=== PATIENT | female | born 1975 | race Caucasian/White ===

== ENCOUNTER 2016-12-10 08:30 | Outpatient (RCR) | payer MEDICAID ==
[~2016-12-10 08:30] MED LIST: DM/P295L13; GUAI-150 PO; OMEP20CA6 PO
== END 2016-12-12 | disposition home or self-care (01) ==
PROVIDERS: ATTEND Family Medicine
DX: M54.5 Low back pain (principal)

== ENCOUNTER 2017-01-27 09:15 | Outpatient (RCR) | payer MEDICAID | END 2017-03-17 | disposition home or self-care (01) | PROVIDERS: ATTEND Family Medicine | DX: M54.5 Low back pain (principal) ==

== ENCOUNTER 2017-09-23 11:47 | Outpatient (CLI) | payer MEDICAID ==
[2017-09-23] MEDS ORDERED: DEXAMETHASONE 10 MG/ML (DECADRON) 1 ML VIAL ONE (12:04)
[2017-09-23 12:16] VITALS: BP 112/68
[2017-09-23 12:57] VITALS: BP 120/77
--- NOTE | 2017-09-23 20:00 | OPERATIVE REPORT ---
DATE OF SERVICE: 09/23/2017 DIAGNOSIS: Thoracic radiculopathy. OPERATIVE PROCEDURE: Interlaminar epidural steroid injection at T7-T8. ANESTHESIA: Propofol. COMPLICATIONS: None. CLINICAL SURGICAL COURSE: After being placed in the prone position upon a procedure table, we then administered Propofol for anesthesia. The area overlying the T7-T8 area was identified under fluoroscopy. The skin overlying the area was prepped with Betadine. The skin and the deep structures were anesthetized with approximately 5 mL of 1% Lidocaine. A 25 gauge spinal needle was then inserted and directed down to the lamina under direct fluoroscopy guidance. it was then worked into the ligamentum flavum. Using a loss of resistance syringe, we entered the epidural space. Approximately 1.0 mL of contrast dye was injected. Proximal and distal spread was noted. This indicated that we were in the epidural space. No vascular uptake was noted. Finally, 8.0 mg of Dexamethasone diluted in 3 mm of preservation free saline was injected and washed out the contrast under fluoroscopy. No blood, CSF or paresthesia was noted during the procedure. The patient will be released home without any complications. Job ID: [id number] DocumentID: [id number] Dictated Date: 09/23/2017 12:55:55 Hand Finisher Date: 09/23/2017 19:59:29 Dictated By: MARY BETH REYES DO
== END 2017-09-23 13:00 ==
LOC: CARD 11:47
PROVIDERS: ATTEND Pain Medicine Interventional Pain Medicine
DX: M54.14 Radiculopathy, thoracic region (principal)
CPT/HCPCS: 62321

== ENCOUNTER 2019-05-02 19:46 | Emergency (ER) | payer MEDICAID ==
[~2019-05-02] VITALS: Ht 165 cm; Wt 61.0 kg
[2019-05-02] MEDS ORDERED: PANTOPRAZOLE 40 MG (PROTONIX) VIAL IV STA (19:54)
[2019-05-02] MEDS ORDERED: fentaNYL INJECTION 100 MCG/2 ML AMP IVP STA (19:54)
[2019-05-02] MEDS ORDERED: ASPIRIN 81 MG CHEW (CHILDREN'S ASA) PO ONE (20:00)
--- NOTE | 2019-05-02 20:03 | ED Chest Pain ---
General Chief Complaint: Chest Pain Stated Complaint: CHEST PAINS Source: patient History of Present Illness Date Seen by Provider: May 02, 2019 Time Seen by Provider: 19:46 Initial Comments 43-year-old female presenting with complaints of pain in her back between her shoulder blades and this is a sharp pain that came on suddenly [facility] She also has pain in her chest. She has been drinking some wine coolers tonight. She denies having pain like this in the past. She denies any nausea or vomiting. She has no shortness of breath but feels like she has to take a deep breath. She has no history of heart disease or respiratory problems. She is currently taking an antibiotic for a dental infection. She has previously had her gallbladder removed. She denies any abdominal pain. She just finished her menstrual period 2 days ago. The pain started just prior to coming to the emergency department. She has not tried taking anything for the pain. She appears very anxious Allergies and Home Medications Allergies Coded Allergies: codeine (Unverified Allergy, Mild, 01/15/09) Patient Home Medication List Home Medication List Reviewed: Yes Review of Systems Review of Systems Constitutional: No chills, No fever EENTM: No Symptoms Reported Respiratory: No Symptoms Reported Cardiovascular: See HPI, Chest Pain Gastrointestinal: No Symptoms Reported Genitourinary: No Symptoms Reported Musculoskeletal: back pain (sharp pain between her shoulder blades) Skin: no symptoms reported Psychiatric/Neurological: Anxiety Past Kvtbhio-Slqnuw-Dzvecu Hx Past Med/Social Hx: Reviewed Nursing Past Med/Soc Hx Patient Social History Alcohol Use: Denies Use Recreational Drug Use: No Smoking Status: Current Everyday Smoker Type Used: Cigarettes 2nd Hand Smoke Exposure: No Recent Foreign Travel: No Contact w/Someone Who Travel: No Physical Abuse: No Sexual Abuse: No Seasonal Allergies Seasonal Allergies: No Past Medical History Surgeries: Yes Respiratory: No Cardiac: No Neurological: No Reproductive Disorders: Yes (LEEP in past) Sexually Transmitted Disease: No Gastrointestinal: No Musculoskeletal: No Endocrine: No Cancer: No Psychosocial: No Integumentary: No Blood Disorders: No Physical Exam Vital Signs Vital Signs - First Documented 05/02/19 19:50 Temp 36.6 Pulse 90 Resp 18 B/P (MAP) 117/72 (87) Pulse Ox 100 O2 Delivery Room Air Capillary Refill : Height, Weight, BMI Height: 5'5.00" Weight: 146lbs. oz. 66.050906sz; BMI Method:Stated General Appearance: Anxious, Moderate Distress HEENT: PERRL/EOMI, Normal ENT Inspection, Pharynx Normal Neck: Full Range of Motion, Normal Inspection, Non Tender, Supple; No Carotid Bruit Respiratory: Chest Non Tender, Lungs Clear, Normal Breath Sounds, No Accessory Muscle Use, No Respiratory Distress Cardiovascular: Regular Rate, Rhythm, Normal Peripheral Pulses Gastrointestinal: Normal Bowel Sounds, No Pulsatile Mass, Soft Rectal: Deferred Extremity: Normal Capillary Refill, Normal Inspection, No Pedal Edema Neurologic/Psychiatric: Alert, Oriented x3, No Motor/Sensory Deficits, 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 Norm as Tested, Other (anxious) Skin: Normal Color, Warm/Dry Progress/Results/Core Measures Results/Orders Lab Results Laboratory Tests Test 05/02/19 19:53 Range/Units White Blood Count 7.9 4.3-11.0 10^3/uL Red Blood Count 4.25 L 4.35-5.85 10^6/uL Hemoglobin 12.5 11.5-16.0 G/DL Hematocrit 39 35-52 % Mean Corpuscular Volume 91 80-99 FL Mean Corpuscular Hemoglobin 29 25-34 PG Mean Corpuscular Hemoglobin Concent 32 32-36 G/DL Red Cell Distribution Width 13.5 10.0-14.5 % Platelet Count 247 130-400 10^3/uL Mean Platelet Volume 11.2 H 7.4-10.4 FL Neutrophils (%) (Auto) 57 42-75 % Lymphocytes (%) (Auto) 34 12-44 % Monocytes (%) (Auto) 7 0-12 % Eosinophils (%) (Auto) 1 0-10 % Basophils (%) (Auto) 1 0-10 % Neutrophils # (Auto) 4.5 1.8-7.8 X 10^3 Lymphocytes # (Auto) 2.7 1.0-4.0 X 10^3 Monocytes # (Auto) 0.6 0.0-1.0 X 10^3 Eosinophils # (Auto) 0.1 0.0-0.3 10^3/uL Basophils # (Auto) 0.0 0.0-0.1 10^3/uL Prothrombin Time 13.4 12.2-14.7 SEC INR Comment 1.0 0.8-1.4 Activated Partial Thromboplast Time 28 24-35 SEC Sodium Level 139 135-145 MMOL/L Potassium Level 3.7 3.6-5.0 MMOL/L Chloride Level 102 98-107 MMOL/L Carbon Dioxide Level 24 21-32 MMOL/L Anion Gap 13 5-14 MMOL/L Blood Urea Nitrogen 8 7-18 MG/DL Creatinine 0.75 0.60-1.30 MG/DL Estimat Glomerular Filtration Rate > 60 BUN/Creatinine Ratio 11 Glucose Level 84 70-105 MG/DL Calcium Level 9.2 8.5-10.1 MG/DL Corrected Calcium 8.9 8.5-10.1 MG/DL Magnesium Level 2.0 1.6-2.4 MG/DL Total Bilirubin 0.2 0.1-1.0 MG/DL Aspartate Amino Transf (AST/SGOT) 16 5-34 U/L Alanine Aminotransferase (ALT/SGPT) 12 0-55 U/L Alkaline Phosphatase 61 40-136 U/L Troponin I < 0.30 <0.30 NG/ML Pro-B-Type Natriuretic Peptide 28.0 <75.0 PG/ML Total Protein 7.1 6.4-8.2 GM/DL Albumin 4.4 3.2-4.5 GM/DL Lipase 55 8-78 U/L Serum Alcohol 50 H <10 MG/DL My Orders Orders - MELLISA SARAH MD Cbc With Automated Diff (05/02/19 19:54) Magnesium (05/02/19 19:54) Ekg Tracing (05/02/19 19:54) Comprehensive Metabolic Panel (05/02/19 19:54) Protime With Inr (05/02/19 19:54) Partial Thromboplastin Time (05/02/19 19:54) O2 (05/02/19 19:54) Monitor-Rhythm Ecg Trace Only (05/02/19 19:54) Aspirin Chewable Tablet (Baby Aspirin Ch (05/02/19 20:00) Ed Iv/Invasive Line Start (05/02/19 19:54) Lipase (05/02/19 19:54) Troponin I Fs (05/02/19 19:54) Probnp Fs (05/02/19 19:54) Alcohol (05/02/19 19:54) Chest Pa/Lat (2 View) (05/02/19 19:54) Pantoprazole Injection (Protonix Injecti (05/02/19 19:54) Fentanyl Injection (Sublimaze Injection (05/02/19 19:54) Medications Given in ED Current Medications Medications Dose Ordered Sig/Colleen Route Start Time Stop Time Status Last Admin Dose Admin Aspirin 324 mg ONCE ONCE PO 05/02/19 20:00 05/02/19 20:01 DC 05/02/19 20:09 324 MG Vital Signs/I&O 05/02/19 05/02/19 19:50 21:23 Temp 36.6 Pulse 90 88 Resp 18 18 B/P (MAP) 117/72 (87) 109/59 Pulse Ox 100 100 O2 Delivery Room Air Room Air Progress Progress Note #1: Progress Note Obtain basic labs as well as chest x-ray and electrocardiogram. As there is no acute ischemic changes on the electrocardiogram will try Protonix as she has been drinking alcohol and a dose of fentanyl. Progress Note #2: Progress Note Labs were all negative for CBC, chemistry, pancreatitis and cardiac. The chest x-ray was not showing any acute process. Her electrocardiogram was negative for any ischemic changes. She did have improvement in her symptoms with the Protonix and single dose of fentanyl. She is been resting comfortably in the room. When discussing results with the patient she did relate that she was told she had an ulcer when she had her gallbladder removed in 2015. She does have Protonix to take but does not take it on a daily basis. Encouraged to take daily as this may have been esophageal spasm to cause her symptoms. Stressed that she should follow up with clinic and they may need to do another EGD or scope to evaluate her esophagus and stomach. Initial ECG Impression Date: May 02, 2019 Initial ECG Impression Time: 19:46 Initial ECG Rate: 90 Initial ECG Rhythm: Normal Sinus Initial ECG Comparisson: No Previous ECG Available Comment Normal sinus rhythm with a heart rate 90 bpm. ID interval of [address] elevation. QT interval of 377 ms and a QTc interval 462 ms. There is no prior tracing available for comparison. Diagnostic Imaging Diagonstic Imaging: Xray Plain Films/CT/US/NM/MRI: chest Comments NAME: [facility] REC#: [id number] PT STATUS: REG ER : 1975 PHYSICIAN: MELLISA SARAH MD ADMIT DATE: 05/02/19/ER FS Draft Date of Exam:05/02/19 CHEST PA/LAT (2 VIEW) INDICATION: Chest pain. PA and lateral chest obtained at 0759 p.m. Heart and mediastinal silhouette are normal in appearance. The lungs are clear. There is no pneumothorax or pleural fluid. IMPRESSION: Negative chest. Dictated on workstation # [id number] Dict: 05/02/192006 Trans: 05/02/192009 LAMIN [id number] Interpreted by: RILEY BROWN MD Electronically signed by: Departure Impression Primary Impression: Esophageal spasm Additional Impressions: Acute upper back pain Non-cardiac chest pain Disposition: HOME, SELF-CARE Condition: Stable Departure-Patient Inst. Decision time for Depature: 21:16 Referrals: JASON PICKERING DO (PCP) Primary Care Physician Patient Instructions: Chest Pain That Is Not Caused by the Heart (DC), Upper Back Pain (DC), Acid Reflux (Gastroesophageal Reflux Disease), Adult (DC) Add. Discharge Instructions: Take your pantoprazole (Protonix) on a daily basis and check back with Dr. Pickering as you may need to have a repeat EGD or scope to look at the lining of your esophagus and stomach for ulcers and scarring. Follow a bland diet to help prevent further episodes of pain Check with clinic for continued problems/concerns Return or seek medical care for worsening pain/symptoms All discharge instructions reviewed with patient and/or family. Voiced understanding. MELLISA SARAH MD May 02, 2019 20:03
--- NOTE | 2019-05-02 20:10 | Diagnostic Imaging Report ---
INDICATION: Chest pain. PA and lateral chest obtained at 0759 p.m. Heart and mediastinal silhouette are normal in appearance. The lungs are clear. There is no pneumothorax or pleural fluid. IMPRESSION: Negative chest. Dictated by: Dictated on workstation # [id number]
[2019-05-02 20:16] LABS: PROTHROMBIN TIME PATIENT 13.4 SEC (12.2-14.7)
[2019-05-02 20:17] LABS: BASOPHILS % (AUTO) 1 % (0-10); EOSINOPHILS # (AUTO) 0.1 10^3/uL (0.0-0.3); EOSINOPHILS % (AUTO) 1 % (0-10); HEMATOCRIT 39 % (35-52); HEMOGLOBIN 12.5 G/DL (11.5-16.0); LYMPHOCYTES # (AUTO) 2.7 X 10^3 (1.0-4.0); LYMPHOCYTES % (AUTO) 34 % (12-44); MEAN CORPUSCULAR HEMOGLOBIN 29 PG (25-34); MEAN CORPUSCULAR HGB CONC 32 G/DL (32-36); MEAN CORPUSCULAR VOLUME 91 FL (80-99); MEAN PLATELET VOLUME 11.2 FL (7.4-10.4); MONOCYTES # (AUTO) 0.6 X 10^3 (0.0-1.0); MONOCYTES % (AUTO) 7 % (0-12); NEUTROPHILS # (AUTO) 4.5 X 10^3 (1.8-7.8); NEUTROPHILS % (AUTO) 57 % (42-75); PLATELET COUNT 247 10^3/uL (130-400); RED CELL DISTRIBUTION WIDTH 13.5 % (10.0-14.5); WHITE BLOOD COUNT 7.9 10^3/uL (4.3-11.0)
[2019-05-02 20:27] LABS: ALANINE AMINOTRANSFERASE 12 U/L (0-55); ALBUMIN 4.4 GM/DL (3.2-4.5); ALKALINE PHOSPHATASE 61 U/L (40-136); BILIRUBIN,TOTAL 0.2 MG/DL (0.1-1.0); BUN/CREATININE RATIO 11; CALCIUM 9.2 MG/DL (8.5-10.1); CARBON DIOXIDE 24 MMOL/L (21-32); CHLORIDE 102 MMOL/L (98-107); CREATININE SERUM 0.75 MG/DL (0.60-1.30); GFR ESTIMATED > 60; GLUCOSE 84 MG/DL (70-105); LIPASE 55 U/L (8-78); POTASSIUM 3.7 MMOL/L (3.6-5.0); SODIUM 139 MMOL/L (135-145); TOTAL PROTEIN 7.1 GM/DL (6.4-8.2)
[2019-05-02 21:23] VITALS: BP 109/59
== END 2019-05-02 21:23 | disposition home or self-care (01) ==
LOC: EDUNIT# 19:46 → ER FS 19:47
DX: K22.4 Dyskinesia of esophagus (principal); M54.6 Pain in thoracic spine; R07.89 Other chest pain; F17.210 Nicotine dependence, cigarettes, uncomplicated; Z88.5 Allergy status to narcotic agent
CPT/HCPCS: 36415; 71046; 80053; 80320; 83690; 83735; 83880; 84484; 85025; 85610; 85730; 93005; 93041

== ENCOUNTER 2020-07-04 05:31 | Outpatient (CLI) | payer MEDICAID ==
[~2020-07-04] VITALS: Ht 165.1 cm; Wt 63.6 kg
[2020-07-04] MEDS ORDERED: PANT20TA18 PO (12:27)
== END 2020-07-04 12:30 | disposition home or self-care (01) ==
LOC: PREOP 05:31
PROVIDERS: ATTEND Obstetrics & Gynecology
DX: Z01.818 Encounter for other preprocedural examination (principal)

== ENCOUNTER 2021-10-01 21:57 | Emergency (ER) | payer MEDICAID ==
[~2021-10-01] VITALS: Ht 165 cm; Wt 58.0 kg
[~2021-10-01 21:57] MED LIST changes: +PANT20TA18 PO
--- NOTE | 2021-10-01 22:01 | ED Chest Pain ---
General Stated Complaint: CP History of Present Illness Date Seen by Provider: Oct 01, 2021 Time Seen by Provider: 10:05 Initial Comments 45-year-old female brought in with chest pain. The chest pain started approximately an hour or so prior to arrival. She reports she was out swimming when it started. That was kind epigastric substernal radiated to her back. Patient reports that it doubled over in pain. She does have a history of reflux where she gets "bubbles that can come about of her throat" takes Prilosec occasionally. She has had a prior negative stress test about 6 years ago. Patient does continue to smoke. She denies any diaphoresis. She denies any nausea, vomiting. She had some shortness of breath related to the pain but not actually short of breath. Patient received 4 baby aspirin in route. She reports that upon arrival her pain is completely gone and she feels great and that she could "do cart wheels" Allergies and Home Medications Allergies Coded Allergies: codeine (Unverified Allergy, Mild, 01/15/09) Patient Home Medication List Home Medication List Reviewed: Yes Pantoprazole Sodium (Pantoprazole Sodium) 20 Mg Tablet.dr, 20 MG PO DAILY PRN for HEARTBURN, (Reported) Entered as Reported by: DAFNE JACKSON on 07/04/20 1227 Review of Systems Review of Systems Constitutional: No chills, No fever Respiratory: Denies Cough, Denies Shortness of Air Cardiovascular: See HPI, Chest Pain; Denies Lightheadedness, Denies P alpitations Gastrointestinal: See HPI, Abdominal Pain; Denies Diarrhea, Denies Nausea, Denies Vomiting Genitourinary: No Symptoms Reported Musculoskeletal: see HPI, back pain Skin: no symptoms reported Psychiatric/Neurological: No Symptoms Reported Endocrine: No Symptoms Reported Past Yzfeogr-Ogtltt-Wjdmbw Hx Seasonal Allergies Seasonal Allergies: No Past Medical History Surgeries: Yes Gallbladder Respiratory: No Cardiac: No Neurological: No Reproductive Disorders: Yes (LEEP in past) Sexually Transmitted Disease: No Genitourinary: No Gastrointestinal: Yes Gastroesophageal Reflux Musculoskeletal: No Endocrine: No HEENT: No Cancer: No Psychosocial: No Integumentary: No Blood Disorders: No Physical Exam Vital Signs Vital Signs - First Documented 10/01/21 22:05 Temp 36.5 Pulse 77 Resp 17 B/P (MAP) 110/70 (83) Pulse Ox 99 O2 Delivery Room Air Capillary Refill : Height, Weight, BMI Height: 5'5.00" Weight: 146lbs. oz. 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 Norm as Tested Skin: Normal Color, Warm/Dry Progress/Results/Core Measures Results/Orders Lab Results Laboratory Tests Test 10/01/21 22:10 10/01/21 22:12 Range/Units White Blood Count 7.2 4.3-11.0 10^3/uL Red Blood Count 4.05 3.80-5.11 10^6/uL Hemoglobin 12.1 11.5-16.0 g/dL Hematocrit 37 35-52 % Mean Corpuscular Volume 91 80-99 fL Mean Corpuscular Hemoglobin 30 25-34 pg Mean Corpuscular Hemoglobin Concent 33 32-36 g/dL Red Cell Distribution Width 14.1 10.0-14.5 % Platelet Count 233 130-400 10^3/uL Mean Platelet Volume 11.0 9.0-12.2 fL Immature Granulocyte % (Auto) 0 % Neutrophils (%) (Auto) 48 42-75 % Lymphocytes (%) (Auto) 42 12-44 % Monocytes (%) (Auto) 8 0-12 % Eosinophils (%) (Auto) 1 0-10 % Basophils (%) (Auto) 1 0-10 % Neutrophils # (Auto) 3.5 1.8-7.8 10^3/uL Lymphocytes # (Auto) 3.0 1.0-4.0 10^3/uL Monocytes # (Auto) 0.6 0.0-1.0 10^3/uL Eosinophils # (Auto) 0.1 0.0-0.3 10^3/uL Basophils # (Auto) 0.1 0.0-0.1 10^3/uL Immature Granulocyte # (Auto) 0.0 0.0-0.1 10^3/uL Neutrophils % (Manual) 41 % Lymphocytes % (Manual) 30 % Monocytes % (Manual) 9 % Eosinophils % (Manual) 2 % Basophils % (Manual) 0 % Band Neutrophils 4 % Atypical Lymphocytes 14 % Platelet Estimate NORMAL Blood Morphology Comment NORMAL Sodium Level 140 135-145 MMOL/L Potassium Level 3.6 3.6-5.0 MMOL/L Chloride Level 104 98-107 MMOL/L Carbon Dioxide Level 25 21-32 MMOL/L Anion Gap 11 5-14 MMOL/L Blood Urea Nitrogen 9 7-18 MG/DL Creatinine 0.74 0.60-1.30 MG/DL Estimat Glomerular Filtration Rate 102 BUN/Creatinine Ratio 12 Glucose Level 86 70-105 MG/DL Calcium Level 9.0 8.5-10.1 MG/DL Corrected Calcium 8.8 8.5-10.1 MG/DL Magnesium Level 1.8 1.6-2.4 MG/DL Total Bilirubin 0.2 0.1-1.0 MG/DL Aspartate Amino Transf (AST/SGOT) 18 5-34 U/L Alanine Aminotransferase (ALT/SGPT) 12 0-55 U/L Alkaline Phosphatase 54 40-136 U/L Troponin I < 0.30 <0.30 NG/ML C-Reactive Protein < 0.30 <0.50 MG/DL Total Protein 6.8 6.4-8.2 GM/DL Albumin 4.3 3.2-4.5 GM/DL Urine Color PALE YELLOW Urine Clarity CLEAR Urine pH 6.0 5-9 Urine Specific [place] <=1.005 1.016-1.022 Urine Protein NEGATIVE NEGATIVE Urine Glucose (UA) NEGATIVE NEGATIVE Urine Ketones NEGATIVE NEGATIVE Urine Nitrite NEGATIVE NEGATIVE Urine Bilirubin NEGATIVE NEGATIVE Urine Urobilinogen 0.2 < = 1.0 MG/DL Urine Leukocyte Esterase NEGATIVE NEGATIVE Urine RBC (Auto) 1+ H NEGATIVE Urine RBC 0-2 /HPF Urine WBC 0-2 /HPF Urine Squamous Epithelial Cells 5-10 /HPF Urine Crystals NONE /LPF Urine Bacteria NEGATIVE /HPF Urine Casts NONE /LPF Urine Mucus NEGATIVE /LPF Urine Culture Indicated NO My Orders Orders - SHREYA CABEZAS DO Cbc With Automated Diff (10/01/21 22:09) Comprehensive Metabolic Panel (10/01/21 22:09) Magnesium (10/01/21 22:09) Ua Culture If Indicated (10/01/21 22:09) Crp Fs (10/01/21 22:09) Troponin I Fs (10/01/21 22:09) Ekg Tracing (10/01/21 22:09) Monitor-Rhythm Ecg Trace Only (10/01/21 22:09) Chest 1 View Ap/Pa Only (10/01/21 22:09) Manual Differential (10/01/21 22:10) Vital Signs/I&O 10/01/21 22:05 Temp 36.5 Pulse 77 Resp 17 B/P (MAP) 110/70 (83) Pulse Ox 99 O2 Delivery Room Air Progress Progress Note : Progress Note Patient symptoms had completely resolved and she felt fine upon arrival to the ER. Patient with completely normal labs x-ray and EKG with possible incomplete right bundle branch but no significant EKG changes. After discussing results with patient I discussed repeat 2-hour troponin. Patient felt that it likely was not her heart and would prefer just to follow-up with her primary care provider tomorrow. I did discuss risk which she voices understanding. I do think she is at low risk for ACS so I will discharge her and she can follow-up with her primary care tomorrow for further evaluation Initial ECG Impression Date: Oct 01, 2021 Initial ECG Impression Time: 22:06 Initial ECG Rate: 73 Initial ECG Rhythm: Normal Sinus Initial ECG Intervals: Normal Initial ECG Impression: Normal Comment No acute ST elevation or changes noted Diagnostic Imaging Diagonstic Imaging: Xray Plain Films/CT/US/NM/MRI: chest Comments Date of Exam:10/01/21 CHEST 1 VIEW AP/PA ONLY Indication: Chest pain. Findings: Lungs are clear although hyperexpanded. No failure, effusion or pneumothorax. Impression: No acute-appearing abnormality. Departure Impression Primary Impression: Acute nonspecific chest pain with low risk of coronary artery disease Additional Impression: Epigastric pain Disposition: 01 HOME, SELF-CARE Condition: Stable Departure-Patient Inst. Referrals: JASNO CHRISTIE DO (PCP) Primary Care Physician Patient Instructions: Chest Pain That Is Not Caused by the Heart (DC), Dyspepsia Add. Discharge Instructions: Please follow-up with your primary care provider for further outpatient evaluation. Please start Pepcid 20 mg twice daily SHREYA CABEZAS DO Oct 01, 2021 22:01
[2021-10-01 22:15] LABS: BASOPHILS # (AUTO) 0.1 10^3/uL (0.0-0.1); BASOPHILS % (AUTO) 1 % (0-10); EOSINOPHILS # (AUTO) 0.1 10^3/uL (0.0-0.3); EOSINOPHILS % (AUTO) 1 % (0-10); HEMATOCRIT 37 % (35-52); HEMOGLOBIN 12.1 g/dL (11.5-16.0); LYMPHOCYTES % (AUTO) 42 % (12-44); MEAN CORPUSCULAR HEMOGLOBIN 30 pg (25-34); MEAN CORPUSCULAR HGB CONC 33 g/dL (32-36); MEAN CORPUSCULAR VOLUME 91 fL (80-99); MONOCYTES # (AUTO) 0.6 10^3/uL (0.0-1.0); MONOCYTES % (AUTO) 8 % (0-12); NEUTROPHILS # (AUTO) 3.5 10^3/uL (1.8-7.8); NEUTROPHILS % (AUTO) 48 % (42-75); PLATELET COUNT 233 10^3/uL (130-400); WHITE BLOOD COUNT 7.2 10^3/uL (4.3-11.0)
[2021-10-01 22:18] LABS: BILIRUBIN,URINE NEGATIVE (NEGATIVE); CLARITY,URINE CLEAR; GLUCOSE, URINE (UA) NEGATIVE (NEGATIVE); KETONES,URINE NEGATIVE (NEGATIVE); LEUKOCYTE ESTERASE ,URINE NEGATIVE (NEGATIVE); NITRITE,URINE NEGATIVE (NEGATIVE); PROTEIN,URINE NEGATIVE (NEGATIVE)
[2021-10-01 22:33] LABS: BACTERIA,URINE NEGATIVE /HPF; COLOR,URINE PALE YELLOW; RBC,URINE 0-2 /HPF; WBC,URINE 0-2 /HPF
[2021-10-01 22:34] LABS: BAND NEUTROPHILS 4 %; EOSINOPHILS % (MANUAL) 2 %; LYMPHOCYTES % (MANUAL) 30 %; MONOCYTES % (MANUAL) 9 %; NEUTROPHILS % (MANUAL) 41 %
[2021-10-01 22:35] LABS: ATYPICAL LYMPHOCYTES 14 %; BASOPHILS % (MANUAL) 0 %; PLATELET ESTIMATE NORMAL; RBC MORPH NORMAL
[2021-10-01 22:38] LABS: ALKALINE PHOSPHATASE 54 U/L (40-136); BILIRUBIN,TOTAL 0.2 MG/DL (0.1-1.0); BUN/CREATININE RATIO 12; CARBON DIOXIDE 25 MMOL/L (21-32); CHLORIDE 104 MMOL/L (98-107); CREATININE SERUM 0.74 MG/DL (0.60-1.30); GFR ESTIMATED 102; GLUCOSE 86 MG/DL (70-105); MAGNESIUM 1.8 MG/DL (1.6-2.4); POTASSIUM 3.6 MMOL/L (3.6-5.0); SODIUM 140 MMOL/L (135-145)
--- NOTE | 2021-10-01 22:38 | Diagnostic Imaging Report ---
Indication: Chest pain. Findings: Lungs are clear although hyperexpanded. No failure, effusion or pneumothorax. Impression: No acute-appearing abnormality. Dictated by: Dictated on workstation # [id number]
[2021-10-01 22:39] LABS: ALANINE AMINOTRANSFERASE 12 U/L (0-55); ALBUMIN 4.3 GM/DL (3.2-4.5); TOTAL PROTEIN 6.8 GM/DL (6.4-8.2)
[2021-10-01 23:00] VITALS: BP 105/73
== END 2021-10-01 23:00 | disposition home or self-care (01) ==
LOC: EDUNIT# 21:57 → ER FS 21:58
DX: R07.89 Other chest pain (principal); R10.13 Epigastric pain; F17.200 Nicotine dependence, unspecified, uncomplicated; Z28.310 Unvaccinated for COVID-19
CPT/HCPCS: 36415; 71045; 80053; 81000; 83735; 84484; 85007; 85027; 86141; 93005; 93041